=== PATIENT | female | born 1990 | race Caucasian/White ===

== ENCOUNTER 2019-07-15 00:48 | Day surgery (SDC) | payer SELFPAY ==
[2019-07-15 01:32] VITALS: BP 106/56; TEMP 98.1; BMI 36.6
--- NOTE | 2019-07-15 06:57 | PDOC.LDHP ---
Labor and Delivery H&P Chief complaint: contractions HPI: 29 y/o at 39w5d, patient of Radha Duque, presents with ctx that have gotten more frequent today. Patient states she has been having ctx for several days. Was 1 cm in clinic. Denies VB, LOF, or decreased FM. ROS neg for HEENT, CV, pulm, GI, , neuro, psych, skin, musculoskeletal, or constitutional symptoms other than mentioned above. OB History Details: 1 prior term LTCS for FTP - max dilation 4cm Current complications: none Past Medical History: None Current medications: pre- vitamins Previous surgical history: low tranverse CS (x1 for FTP) Allergies/Adverse Reactions: Allergies Allergy/AdvReac Type Severity Reaction Status Date / Time No Known Allergies Allergy Unverified 07/15/19 01:34 Social history: none - Physical Exam Vital signs reviewed and normal: yes General: NAD, resting Lungs: nonlabored breathing Abdomen: gravid Extremeties: no edema FHT: category 1 (120s, mod variability, + accels, no decels) [place] contractions every: irregular - Vaginal Exam cm dilated: 1 (unchanged) Effacement: 50% Station: -2 - Assessment 29 y/o at 39w5d with no e/o active labor. status reassuring with reactive NST. - Plan -: D/c home with precautions. Advised to keep all appointments.
== END 2019-07-15 03:15 | disposition home or self-care (01) ==
LOC: L&D/OP 00:48
PROVIDERS: ATTEND Obstetrics & Gynecology
DX: O47.1 False labor at or after 37 completed weeks of gestation (principal); Z3A.39 39 weeks gestation of pregnancy
CPT/HCPCS: 99283

== ENCOUNTER 2019-07-23 19:51 | Inpatient (IN) | payer SELFPAY ==
[2019-07-23] MEDS ORDERED: Acetaminophen 500 MG TAB PO PRN (20:31)
[2019-07-23] MEDS ORDERED: Ibuprofen 800 MG TAB PO PRN (20:31)
[2019-07-23] MEDS ORDERED: HYDROcodone/Acetaminophen 5/325 mg Tablet PO PRN ×2 (20:31)
[2019-07-23] MEDS ORDERED: Zolpidem Tartrate 5 MG TAB PO PRN (20:31)
[2019-07-23] MEDS ORDERED: Meperidine HCl/PF 25 MG/ML VIAL IM/IV PRN (20:31)
[2019-07-23] MEDS ORDERED: Ondansetron PF 4 MG/2 ML Vial IVP PRN (20:31)
[2019-07-23] MEDS ORDERED: Lidocaine 1% (PF) 30 ML VIAL SC PRN (20:31)
[2019-07-23] MEDS ORDERED: Butorphanol Tartrate 1 MG/ML VIAL SLOW IVP PRN (20:31)
[2019-07-23] MEDS ORDERED: hydrALAZINE 20 MG/ML VIAL SLOW IVP PRN (20:31)
[2019-07-23] MEDS ORDERED: Promethazine HCl 25 MG/ML VIAL IM PRN (20:31)
[2019-07-23] MEDS ORDERED: NS / Oxytocin 40 units/1000ml 1,000 ML IV PRN (20:31)
[2019-07-23] MEDS ORDERED: NS w/ Oxytocin 10 units 500 ML IV SCH (20:45)
[2019-07-23] MEDS ORDERED: Lactated Ringer's 1,000 ML IV SCH (20:45)
[2019-07-23 21:14] VITALS: BMI 37.0
[2019-07-23] MEDS: Lactated Ringer's 1,000 ML IV SCH (21:30)
[2019-07-23 21:53] LABS: Hemoglobin 12.9 g/dL (12.0-16.0); Mean Corpuscular HGB CONC 34.5 g/dL (32.0-36.0); Mean Corpuscular Hemoglobin 28.8 pg (27.0-31.0); Mean Corpuscular Volume 83.6 fL (78.0-98.0); Mean Platelet Volume 9.3 fL (7.4-10.4); Platelet Count 209 thou/uL (130-400); RBC Distribution Width 12.8 % (11.5-14.5); Red Blood Cell (RBC) Count 4.47 mill/uL (4.20-5.40); White Blood Cell (WBC) Count 17.9 thou/uL (4.8-10.8)
[2019-07-23 22:32] LABS: Syphilis Antibody Nonreactive (Nonreactive); Syphilis Antibody Index 0.04 S/CO (<1.00 Non-Reactive)
[2019-07-23 22:41] LABS: HBSAg Index 0.16 S/CO (0-0.99); Hep B Surf Ag Non-Reactive S/CO (NonReactive)
[2019-07-24] MEDS ORDERED: Fentanyl 4 mcg/Bup 0.1% Cadd 100 ML ONE (03:07)
[2019-07-24] MEDS ORDERED: Lactated Ringer's 500 ML IV PRN (03:58)
[2019-07-24] MEDS ORDERED: diphenhydrAMINE 50 MG/ML VIAL IVP PRN (03:58)
[2019-07-24] MEDS ORDERED: Acetaminophen 325 MG TAB PO PRN (03:58)
[2019-07-24] MEDS ORDERED: ePHEDrine/0.9% NaCl/PF SYRINGE 50 mg/10 ml SLOW IVP PRN (03:58)
[2019-07-24] MEDS ORDERED: Naloxone HCl 0.4 mg/ml Vial IVP PRN ×2 (03:58)
[2019-07-24] MEDS ORDERED: Ondansetron PF 4 MG/2 ML Vial IVP PRN ×2 (03:58→10:15)
[2019-07-24] MEDS ORDERED: Promethazine HCl 25 MG/ML VIAL IM PRN (03:58)
[2019-07-24] MEDS ORDERED: Fentanyl 4 mcg/Bupivacaine 0.1% Cassette 100 ML EPIDURAL SCH (04:00)
[2019-07-24] MEDS ORDERED: Communication Order-Pharmacy FS SCH (04:00)
[2019-07-24] MEDS: Lactated Ringer's 1,000 ML IV SCH (04:45)
--- NOTE | 2019-07-24 08:53 | PDOC.OPDEL ---
OB Operative/Delivery Note Delivery Dr/Surgeon: Raysa Duque Pre-Delivery Diagnosis: medically indicated induction Procedure/Post Delivery Dx: spontaneous vaginal delivery Weeks gestation: 41 Anesthesia: epidural - Findings A Sex: female Weight: 7 lb 5 oz - 1 min: 9 - 5 min: 9 - Additional Findings/Plan Placenta delivered: spontaneous Repaired Obstetrical Laceration: vaginal (1st degree, right and left side. one figure of eight placed in each side.) Estimated blood loss: 300mL Post delivery plan: routine recovery
--- NOTE | 2019-07-24 08:54 | PDOC.LDHP ---
Labor and Delivery H&P Chief complaint: contractions, scheduled induction HPI: Patient Had dilapan placed in cervix yesterday at 1600. She had a lot of uterine irritability form them. At 1900 tonight she started having contractions that were painful every 1-2 mins. She decided to arrive the hospital for evaluation of labor. Current gestational age (weeks): 41 Due date: 07/17/19 Dating criteria: last menstrual period Grav: 2 Para: 1 OB History Details: PCS for failed IOL with general anesthesia. Abnormal US findings: No Current medications: pre- vitamins Previous surgical history: low tranverse CS Allergies/Adverse Reactions: Allergies Allergy/AdvReac Type Severity Reaction Status Date / Time No Known Allergies Allergy Verified 07/23/19 21:15 Social history: none - Physical Exam Vital signs reviewed and normal: yes General: breathing through contractions Heart: RRR Lungs: nonlabored breathing Abdomen: gravid Extremeties: trace edema FHT: category 1 [place] contractions every: q1-2 - Vaginal Exam cm dilated: 3 Effacement: 25% Station: -3 - OB Labs Blood type: A RH: positive Antibody Screen: negative HIV: negative RPR: negative HEPSAg: negative 1 hour GCT: negative GBS: negative Urine drug screen: negative Rubella: immune - Assessment L&D Assessment: term patient in labor - Plan Plan: admit to L&D, labor augmentation if indicated (Removed dilapan cervical ripening sticks x 5 observed contractions pattern and pitocin for augmentation if indicated.)
[2019-07-24] MEDS ORDERED: Adacel (T-DAP) 0.5 ML SYRINGE IM ONE (10:15)
[2019-07-24] MEDS ORDERED: Milk Of Magnesia 30 ML UDCUP PO PRN (10:15)
[2019-07-24] MEDS ORDERED: NS / Oxytocin 40 units/1000ml 1,000 ML IV SCH (10:15)
[2019-07-24] MEDS ORDERED: HYDROcodone/Acetaminophen 5/325 mg Tablet PO PRN ×2 (10:15)
[2019-07-24] MEDS ORDERED: Lanolin Ointment 7 GM TUBE TOP PRN (10:15)
[2019-07-24] MEDS ORDERED: Benzocaine-Menthol 82.5 ML CAN TOP PRN (10:15)
[2019-07-24] MEDS ORDERED: Bisacodyl 10 MG SUPP PR PRN (10:15)
[2019-07-24] MEDS ORDERED: hydrALAZINE 20 MG/ML VIAL SLOW IVP PRN (10:15)
[2019-07-24] MEDS ORDERED: Docusate Calcium (SURFAK) 240 MG CAP PO SCH (10:30)
[2019-07-24] MEDS ORDERED: Prenatal Vitamin 1 TAB PO SCH (10:30)
[2019-07-24] MEDS ORDERED: Bupivacaine 0.25% HCL 30 ML VIAL ONE (11:11)
[2019-07-24] MEDS: Ibuprofen 800 MG TAB PO SCH ×2 (16:06→20:28)
[2019-07-24] MEDS: Ferrous Sulfate 325 MG TAB PO SCH (19:00)
[2019-07-24] MEDS: Docusate Calcium (SURFAK) 240 MG CAP PO SCH (20:28)
[2019-07-25] MEDS: Ibuprofen 800 MG TAB PO SCH ×3 (06:02→17:34)
[2019-07-25] MEDS: Ferrous Sulfate 325 MG TAB PO SCH ×2 (08:58→16:10)
[2019-07-25] MEDS: Docusate Calcium (SURFAK) 240 MG CAP PO SCH ×2 (08:58→20:59)
[2019-07-25] MEDS ORDERED: Prenatal Vitamin 1 TAB PO SCH (09:00)
[2019-07-25 21:34] VITALS: BP 124/63; TEMP 99.1
== END 2019-07-25 21:20 | disposition home or self-care (01) | DRG 807 ==
LOC: L&D/OP 19:51 → L&D 07-24 01:33 → 3SW 07-24 14:34
PROVIDERS: ADMIT Student in an Organized Health Care Education/Training Program; ATTEND Student in an Organized Health Care Education/Training Program
PROC: 10E0XZZ Delivery of Products of Conception, External Approach (ICD-10-PCS; principal; 2019-07-24)
PROC: 3E033VJ Introduction of Other Hormone into Peripheral Vein, Percutaneous Approach (ICD-10-PCS; 2019-07-24)
PROC: 0HQ9XZZ Repair Perineum Skin, External Approach (ICD-10-PCS; 2019-07-24)
DX: O70.0 First degree perineal laceration during delivery (principal); Z37.0 Single live birth; Z3A.41 41 weeks gestation of pregnancy
CPT/HCPCS: 36415; 51702; 85027; 86780; 86850; 86900; 86901; 87340; 99285; J2405; J2590; S0020